=== PATIENT | male | born 1985 | race Caucasian/White ===

== ENCOUNTER 2019-05-13 16:31 | Emergency (ER) | payer OTHER ==
[~2019-05-13] VITALS: Ht 177.8 cm; Wt 86.3 kg
[2019-05-13] MEDS ORDERED: fentaNYL INJECTION 100 MCG/2 ML AMP IVP ONE (17:00)
--- NOTE | 2019-05-13 17:01 | ED Abdominal Pain ---
General Chief Complaint: Chest Pain Nursing Triage Note: Patient c/o epigastric pain for the past couple of days. He was evaluated in the clinic given a GI cocktail and sent to the ED for further evaluation. The patient states that he thought it was his ulcers giving him trouble but it hasn't got any better. Sepsis Screen: No Definite Risk (FELIX LANGLEY MD) History of Present Illness Date Seen by Provider: May 13, 2019 Time Seen by Provider: 16:58 Initial Comments 34-year-old male Complains of a persistent upper abdominal pain it's been pretty bad for the last 4 days or so claims to have not really eaten anything during that time Says he carried a diagnosis of ulcer in the past based on symptoms and that Carafate seemed to be helpful but he never had upper endoscopy The only chest discomfort he describes is a little tightness feeling if he moves wrong or stretches it doesn't sound like he has significant chest pain he does have some radiation of pain to the back, he has not had nausea or vomiting he denies any bloody or black tarry stools denies using alcohol at all feels like eating usually makes his pain worse relates that he has definite positive family history of gallbladder disease Apparently he was seen in the clinic and got a GI cocktail before coming to the ER GI cocktail was not helpful (FELIX LANGLEY MD) Allergies and Home Medications Allergies Coded Allergies: No Known Drug Allergies (Unverified , 05/13/19) Home Medications Hydrocodone Bit/Acetaminophen 1 Tab Tab, 1 EACH PO Q6H PRN for PAIN-SEVERE Prescribed by: DINA JACOBS on 05/13/191939 Naproxen 500 Mg Tablet, 500 MG PO BID PRN for ABDOMINAL PAIN Prescribed by: DINA JACOBS on 05/13/191939 Pantoprazole Sodium 40 Mg Tablet.dr, 40 MG PO DAILY Prescribed by: DINA JACOBS on 05/13/191939 Patient Home Medication List Home Medication List Reviewed: Yes (DINA JACOBS MD) Review of Systems Review of Systems Constitutional: no symptoms reported EENTM: No Symptoms Reported Respiratory: No Symptoms Reported Cardiovascular: No Symptoms Reported Gastrointestinal: Abdominal Pain; Denies Nausea, Denies Vomiting Genitourinary: No Symptoms Reported Musculoskeletal: no symptoms reported Skin: no symptoms reported Psychiatric/Neurological: No Symptoms Reported Endocrine: No Symptoms Reported Hematologic/Lymphatic: No Symptoms Reported (FELIX LANGLEY MD) Past Lrieuoo-Dbminf-Uudxlj Hx Patient Social History Recent Foreign Travel: No Contact w/Someone Who Travel: No Recent Infectious Disease Expo: No (FELIX LANGLEY MD) Physical Exam Vital Signs Vital Signs - First Documented 05/13/19 16:41 Temp 37.7 Pulse 85 Resp 16 B/P (MAP) 132/94 (107) Pulse Ox 97 O2 Delivery Room Air (DINA JACOBS MD) Vital Signs Capillary Refill : Less Than 3 Seconds (FELIX LANGLEY MD) Height/Weight/BMI Height: '" Weight: lbs. oz. kg; 27.00 BMI Method: General Appearance: WD/WN, mild distress HEENT: PERRL/EOMI Neck: supple Respiratory: lungs clear, normal breath sounds Cardiovascular: regular rate, rhythm Gastrointestinal: abnormal bowel sounds (decreased); No guarding, No rebound; tenderness (all across epigastrium and RUQ) Extremities: normal range of motion, no pedal edema Back: normal inspection, no CVA tenderness Neurologic/Psychiatric: floor renovator II-XII nml as tested, no motor/sensory deficits (FELIX LANGLEY MD) Focused Exam Lactate Level 05/13/19 17:18: Lactic Acid Level 1.30 (DINA JACOBS MD) Lactic Acid Level Laboratory Tests Test 05/13/19 17:18 Lactic Acid Level 1.30 MMOL/L (0.50-2.00) (DINA JACOBS MD) Progress/Results/Core Measures Results/Orders Lab Results Laboratory Tests Test 05/13/19 16:45 05/13/19 17:18 Range/Units White Blood Count 12.0 H 4.3-11.0 10^3/uL Red Blood Count 5.80 4.35-5.85 10^6/uL Hemoglobin 17.5 13.3-17.7 G/DL Hematocrit 51 40-54 % Mean Corpuscular Volume 89 80-99 FL Mean Corpuscular Hemoglobin 30 25-34 PG Mean Corpuscular Hemoglobin Concent 34 32-36 G/DL Red Cell Distribution Width 12.4 10.0-14.5 % Platelet Count 183 130-400 10^3/uL Mean Platelet Volume 11.1 H 7.4-10.4 FL Neutrophils (%) (Auto) 76 H 42-75 % Lymphocytes (%) (Auto) 15 12-44 % Monocytes (%) (Auto) 8 0-12 % Eosinophils (%) (Auto) 0 0-10 % Basophils (%) (Auto) 0 0-10 % Neutrophils # (Auto) 9.2 H 1.8-7.8 X 10^3 Lymphocytes # (Auto) 1.8 1.0-4.0 X 10^3 Monocytes # (Auto) 0.9 0.0-1.0 X 10^3 Eosinophils # (Auto) 0.0 0.0-0.3 10^3/uL Basophils # (Auto) 0.0 0.0-0.1 10^3/uL Sodium Level 139 135-145 MMOL/L Potassium Level 4.0 3.6-5.0 MMOL/L Chloride Level 98 98-107 MMOL/L Carbon Dioxide Level 28 21-32 MMOL/L Anion Gap 13 5-14 MMOL/L Blood Urea Nitrogen 17 7-18 MG/DL Creatinine 1.03 0.60-1.30 MG/DL Estimat Glomerular Filtration Rate > 60 BUN/Creatinine Ratio 17 Glucose Level 100 70-105 MG/DL Calcium Level 9.6 8.5-10.1 MG/DL Corrected Calcium 8.5-10.1 MG/DL Total Bilirubin 0.6 0.1-1.0 MG/DL Aspartate Amino Transf (AST/SGOT) 13 5-34 U/L Alanine Aminotransferase (ALT/SGPT) 18 0-55 U/L Alkaline Phosphatase 89 40-136 U/L Troponin I < 0.30 <0.30 NG/ML Total Protein 8.1 6.4-8.2 GM/DL Albumin 4.6 H 3.2-4.5 GM/DL Lipase 27 8-78 U/L Lactic Acid Level 1.30 0.50-2.00 MMOL/L (DINA JACOBS MD) My Orders Orders - DINA JACOBS MD Ketorolac Injection (Toradol Injection) (05/13/19 19:15) Pantoprazole Injection (Protonix Injecti (05/13/19 19:15) Rx-Hydrocodone/Apap 5-325 Mg (Rx-Vicodin (05/13/19 19:45) (DINA JACOBS MD) Medications Given in ED Current Medications Medications Dose Ordered Sig/Shelli Route Start Time Stop Time Status Last Admin Dose Admin Acetaminophen/ Hydrocodone Bitart 1 ea Q6H PRN PO 05/13/19 19:45 05/13/19 19:56 DC 05/13/19 19:49 1 EA Famotidine 20 mg ONCE ONCE IVP 05/13/19 17:15 05/13/19 17:16 DC 05/13/19 17:23 20 MG Fentanyl Citrate 50 mcg ONCE ONCE IVP 05/13/19 17:00 05/13/19 17:01 DC 05/13/19 17:12 50 MCG Iohexol 100 ml ONCE ONCE IV 05/13/19 17:45 05/13/19 17:46 DC 05/13/19 18:02 100 ML Ketorolac Tromethamine 30 mg ONCE ONCE IVP 05/13/19 19:15 05/13/19 19:16 DC 05/13/19 19:08 30 MG Sodium Chloride 10 ml NEEDED PRN IV 05/13/19 17:45 05/13/19 19:56 DC 05/13/19 18:02 10 ML Sodium Chloride 100 ml ONCE ONCE IV 05/13/19 17:45 05/13/19 17:46 DC 05/13/19 18:02 100 ML (DINA JACOBS MD) Vital Signs/I&O 05/13/19 05/13/19 16:41 19:49 Temp 37.7 37.7 Pulse 85 95 Resp 16 16 B/P (MAP) 132/94 (107) 159/73 Pulse Ox 97 96 O2 Delivery Room Air Room Air 05/14/19 00:00 Intake Total 1000 ml Balance 1000 ml (DINA JACOBS MD) Blood Pressure Mean: 107 Progress Progress Note : Progress Note Hemoglobin 17.5 and white count 12,000 CMP lipase and troponin are negative lactate is pending CT abdomen and pelvis with IV contrast pending (FELIX LANGLEY MD) Progress Note #1: Progress Note I assumed care of the patient from dr. Langley at 1800 at shift change. Awaiting C T scan results to determine disposition of patient as his labs did not show anything specific to account for his epigastric pain. He had mild elevation of WBC to 12K but this could be stress related. Normal Lactic acid at 1.3 and normal Chemistry with LFTs and Lipase. Progress Note #2: Progress Note Reviewed results of the CT scan and labs with the patient and family. He was still having pain so a dose of Toradol was given as well as some Protonix IV. Advised that if he was having improved symptoms and we could try and get him discharged home otherwise if he had continued or worsening pain he may need to follow up with the surgeon for a possible scope versus a nuclear medicine scan to look at his gallbladder. Progress Note #3: Progress Note Patient was reporting improved pain control after the Toradol even before he got the Protonix. Will discharge to home with refill of Protonix as well as having when necessary naproxen and hydrocodone available for severe pain. Counseled to check back with the clinic and Dr. Haskins the button puncher surgeon about having the other testing done. (DINA JACOBS MD) Comment EKG shows a normal sinus rhythm at 77 flipped T-wave in limb lead 3 and slightly aVF no acute ST changes normal intervals (FELIX LANGLEY MD) Diagnostic Imaging Comments Chest x-ray has been read as normal (FELIX LANGLEY MD) Diagonstic Imaging: CT Plain Films/CT/US/NM/MRI: abdomen, pelvis Comments NAME: ROYER KOVACSJR Mona [facility] REC#: [id number] PT STATUS: REG ER : 1985 PHYSICIAN: FELIX LANGLEY MD ADMIT DATE: 05/13/19/ER FS Signed Date of Exam:05/13/19 CT ABDOMEN/PELVIS W EXAMINATION: CT Abdomen and Pelvis with intravenous contrast. TECHNIQUE: Multiple contiguous axial images were obtained through the abdomen and pelvis after the uneventful administration of intravenous contrast. All CT scans use one or more of the following dose optimizing techniques: automated exposure control, MA and/or KvP adjustment based on a patient size and exam type, or iterative reconstruction. HISTORY: Epigastric pain FINDINGS: No comparison available. Limited views of the lower thorax are unremarkable. The liver is normal without focal lesion. No biliary ductal dilation. Gallbladder is normal. There is mild nonspecific stranding of the pancreas, possibly representing pancreatitis. No fluid collection is seen. Spleen and adrenal glands are normal. The kidneys are normal. No hydronephrosis. Urinary bladder is normal. There are no dilated loops of large or small bowel. No obstruction or inflammation. No free fluid or air. No abdominal or pelvic lymphadenopathy. Aorta is normal in caliber without aneurysm. There are no suspicious osseus lesions. IMPRESSION: 1. Mild nonspecific stranding about the pancreas which may represent acute pancreatitis, correlate with laboratory markers. Dictated by: Dictated on workstation # [id number] Dict: 05/13/191820 Trans: 05/13/191822 [facility] [phone] Interpreted by: CANDY WILLS MD Electronically signed by: CANDY WILLS MD 05/13/191822 (DINA JACOBS MD) Transfer of Care Time: 18:00 Care transferred to: Dr. Jacobs (FELIX LANGLEY MD) Departure Impression Primary Impression: Epigastric abdominal pain Additional Impression: RUQ abdominal pain Disposition: HOME, SELF-CARE Condition: Stable Departure-Patient Inst. Decision time for Depature: 19:36 (DINA JACOBS MD) Referrals: SUZANNE DÍAZ APRN (PCP) Primary Care Physician MARLENE HASKINS DO Patient Instructions: Ulcer and Gastritis Diet, Gastritis (DC), Peptic Ulcers (DC), Acute Abdomen (Belly Pain), Adult (DC) Add. Discharge Instructions: Follow a low fat bland diet. Check with clinic about possible EGD (scope) to look at your stomach and esophagus for ulcers and severe gastritis. You may also need a nuclear medicine scan to check your gallbladder function to see if that might be causing your pain to be worse, especially after eating. Take the medicine for acid on schedule and use the pain medicine as needed for severe pain. All discharge instructions reviewed with patient and/or family. Voiced understanding. Scripts Pantoprazole Sodium (Pantoprazole Sodium) 40 Mg Tablet. 40 MG PO DAILY for gastritis for 30 Days, #30 TAB 0 Refills Prov: DINA JACOBS MD 05/13/19 Naproxen (Naprosyn) 500 Mg Tablet 500 MG PO BID PRN for ABDOMINAL PAIN for 15 Days, #30 TAB 0 Refills Prov: DINA JACOBS MD 05/13/19 Hydrocodone Bit/Acetaminophen (Hydrocodone/Acetaminophen 5/325mg Tablet) 1 Tab Tab 1 EACH PO Q6H PRN for PAIN-SEVERE MDD 10 for 4 Days, #16 TAB 0 Refills Prov: DINA JACOBS MD 05/13/19 FELIX LANGLEY MD May 13, 2019 17:01 DINA JACOBS MD May 13, 2019 18:32
[2019-05-13 17:04] LABS: BASOPHILS % (AUTO) 0 % (0-10); EOSINOPHILS % (AUTO) 0 % (0-10); HEMATOCRIT 51 % (40-54); HEMOGLOBIN 17.5 G/DL (13.3-17.7); LYMPHOCYTES # (AUTO) 1.8 X 10^3 (1.0-4.0); LYMPHOCYTES % (AUTO) 15 % (12-44); MEAN CORPUSCULAR HEMOGLOBIN 30 PG (25-34); MEAN CORPUSCULAR HGB CONC 34 G/DL (32-36); MEAN CORPUSCULAR VOLUME 89 FL (80-99); MEAN PLATELET VOLUME 11.1 FL (7.4-10.4); MONOCYTES # (AUTO) 0.9 X 10^3 (0.0-1.0); MONOCYTES % (AUTO) 8 % (0-12); NEUTROPHILS # (AUTO) 9.2 X 10^3 (1.8-7.8); NEUTROPHILS % (AUTO) 76 % (42-75); PLATELET COUNT 183 10^3/uL (130-400); RED CELL DISTRIBUTION WIDTH 12.4 % (10.0-14.5)
--- NOTE | 2019-05-13 17:06 | Diagnostic Imaging Report ---
EXAMINATION: Chest 1 view HISTORY: Epigastric pain FINDINGS: No comparison available. The lungs are clear. No edema. No pneumonia. No pleural effusion. No pneumothorax. Heart is normal in size. IMPRESSION: 1. Clear lungs. Dictated by: Dictated on workstation # [id number]
[2019-05-13] MEDS ORDERED: NS IV 1000 ML 1,000 ML IV SCH (17:15)
[2019-05-13] MEDS ORDERED: FAMOTIDINE 20MG/2ML IV (PEPCID) IVP ONE (17:15)
[2019-05-13 17:21] LABS: SODIUM 139 MMOL/L (135-145)
--- NOTE | 2019-05-13 17:21 | NUR ---
PT'S SISTER TEXTING ET WOULD LIKE A UPDATE. UPDATE GIVEN AFTER GETTING VERBAL PERMISSION FROM THE PT.
[2019-05-13 17:22] LABS: ALANINE AMINOTRANSFERASE 18 U/L (0-55); ALBUMIN 4.6 GM/DL (3.2-4.5); ALKALINE PHOSPHATASE 89 U/L (40-136); BILIRUBIN,TOTAL 0.6 MG/DL (0.1-1.0); BUN/CREATININE RATIO 17; CALCIUM 9.6 MG/DL (8.5-10.1); CARBON DIOXIDE 28 MMOL/L (21-32); CHLORIDE 98 MMOL/L (98-107); CREATININE SERUM 1.03 MG/DL (0.60-1.30); GFR ESTIMATED > 60; GLUCOSE 100 MG/DL (70-105); LIPASE 27 U/L (8-78); TOTAL PROTEIN 8.1 GM/DL (6.4-8.2)
[2019-05-13] MEDS ORDERED: HOLD METFORMIN - RECEIVED CONTRAST 20 ML VIAL IV SCH (17:45)
[2019-05-13] MEDS ORDERED: IOHEXOL 350 MG/ML 100 ML (OMNIPAQUE 350) VIAL IV ONE (17:45)
[2019-05-13] MEDS ORDERED: NS 100 ML (IVPB) BAG IV ONE (17:45)
[2019-05-13] MEDS ORDERED: CATHETER FLUSH 10 ML SYR IV PRN (17:45)
--- NOTE | 2019-05-13 18:24 | Diagnostic Imaging Report ---
EXAMINATION: CT Abdomen and Pelvis with intravenous contrast. TECHNIQUE: Multiple contiguous axial images were obtained through the abdomen and pelvis after the uneventful administration of intravenous contrast. All CT scans use one or more of the following dose optimizing techniques: automated exposure control, MA and/or KvP adjustment based on a patient size and exam type, or iterative reconstruction. HISTORY: Epigastric pain FINDINGS: No comparison available. Limited views of the lower thorax are unremarkable. The liver is normal without focal lesion. No biliary ductal dilation. Gallbladder is normal. There is mild nonspecific stranding of the pancreas, possibly representing pancreatitis. No fluid collection is seen. Spleen and adrenal glands are normal. The kidneys are normal. No hydronephrosis. Urinary bladder is normal. There are no dilated loops of large or small bowel. No obstruction or inflammation. No free fluid or air. No abdominal or pelvic lymphadenopathy. Aorta is normal in caliber without aneurysm. There are no suspicious osseus lesions. IMPRESSION: 1. Mild nonspecific stranding about the pancreas which may represent acute pancreatitis, correlate with laboratory markers. Dictated by: Dictated on workstation # [id number]
[2019-05-13] MEDS ORDERED: KETOROLAC 30 MG/ML VIAL IVP ONE (19:15)
[2019-05-13] MEDS ORDERED: PANTOPRAZOLE 40 MG (PROTONIX) VIAL IV STA (19:15)
[2019-05-13] MEDS ORDERED: PANT40TA3 PO (19:40)
[2019-05-13] MEDS ORDERED: NAPR-1071 PO (19:40)
[2019-05-13] MEDS ORDERED: ACHD5005 PO (19:40)
[2019-05-13] MEDS ORDERED: RX-HYDROCODONE/APAP 5/325 MG #4 TAB PK PO PRN (19:45)
[2019-05-13 19:49] VITALS: BP 159/73
== END 2019-05-13 19:55 | disposition home or self-care (01) ==
LOC: EDUNIT# 16:31 → ER FS 16:34
DX: R10.13 Epigastric pain (principal); R10.11 Right upper quadrant pain
CPT/HCPCS: 36415; 71045; 74177; 80053; 83605; 83690; 84484; 85025; 93005

== ENCOUNTER → 2019-05-18 | Outpatient (CLI) | payer OTHER ==
[~2019-05-18] MED LIST: ACHD5005 PO; NAPR-1071 PO; PANT40TA3 PO
== END ==
LOC: LAB 15:33
PROVIDERS: ATTEND Surgery
DX: L98.499 Non-pressure chronic ulcer of skin of other sites with unspecified severity (principal)

== ENCOUNTER 2019-06-01 06:00 | Outpatient (CLI) | payer OTHER ==
[~2019-06-01] VITALS: Ht 177.8 cm; Wt 86.4 kg
[2019-06-01] MEDS ORDERED: SUCR1TAB PO (15:21)
[2019-06-01] MEDS ORDERED: NAPR500T8 PO (15:21)
[2019-06-01] MEDS ORDERED: PANT40TA3 PO (15:21)
== END 2019-06-01 15:22 | disposition home or self-care (01) ==
LOC: PREOP 06:00
PROVIDERS: ATTEND Surgery
DX: Z01.818 Encounter for other preprocedural examination (principal)

== ENCOUNTER 2022-02-27 13:21 | Observation (INO) | payer OTHER ==
[~2022-02-27] VITALS: Ht 175.3 cm; Wt 90.2 kg
[~2022-02-27 13:21] MED LIST changes: +NAPR500T8 PO; -PANT40TA3 PO; +PANT40TA52 PO; +SUCR1TAB PO
[2022-02-27] MEDS ORDERED: morphine INJ 10 MG/ML 1ML (SYR OR VIAL) IVP STA (13:43)
[2022-02-27] MEDS ORDERED: ACETAMINOPHEN 500 MG TAB (TYLENOL) PO ONE (13:45)
[2022-02-27] MEDS ORDERED: ONDANSETRON 4 MG/2 ML (SDV) Z0FRAN IVP ONE (13:45)
[2022-02-27] MEDS ORDERED: ANTACID SUSP 30 ML UDC (MYLANTA) PO ONE (13:45)
[2022-02-27] MEDS ORDERED: VANCOMYCIN INJECTION 1,000 MG in NS (IVPB) 250 ML IV SCH (13:45)
[2022-02-27] MEDS ORDERED: NS IV 1000 ML 1,000 ML IV SCH (13:45)
[2022-02-27] MEDS ORDERED: cefTRIAXone 2,000 MG in NS (IVPB) 50 ML IV ONE (13:45)
[2022-02-27] MEDS ORDERED: PANTOPRAZOLE 40 MG (PROTONIX) VIAL IV ONE (13:45)
--- NOTE | 2022-02-27 14:09 | ED Headache ---
General Chief Complaint: Head/Cervical Problems Stated Complaint: NECK PAIN Nursing Triage Note: PT AMBULATET TO ROOM FS05 WITH C/O NECK PAIN AND PHOTOPHOBIA. PT STATES REPORT, "STIFFNESS, CANT RAISE ARMS UP HIGH, CAN'T RAISE LEGS, HEADACHE". PT STATES HE THINKS HE HAS VIRAL MENINGITIS. Source: patient, family Exam Limitations: no limitations History of Present Illness Date Seen by Provider: Feb 27, 2022 Time Seen by Provider: 13:23 Initial Comments 36-year-old male with past medical history of GERD/gastritis coming in due to roughly 5 days of neck stiffness and headache with light sensitivity. Feels like if he raises his leg the pain gets a lot worse. Feels like he cannot really bend down or twist his neck much at all without significant pain. He denies any muscular tenderness or pulling anything. He did have COVID on February 15 with symptoms occurring a couple days before that. He did have a high fever with that, but has not had any fever for over a week. Has been relatively normal until Friday when the neck stiffness came on. Has never had the symptoms before. Is otherwise denying any other acute complaints including no chest pain, shortness of breath, abdominal pain, vomiting, diarrhea, weakness, numbness, or any other concerns. Allergies and Home Medications Allergies Coded Allergies: No Known Drug Allergies (Unverified , 05/13/19) Patient Home Medication List Home Medication List Reviewed: Yes Naproxen (Naproxen) 500 Mg Tablet.dr, 500 MG PO BID, (Reported) Entered as Reported by: VIRGINIA CRYSTAL on 06/01/191520 Pantoprazole Sodium (Pantoprazole Sodium) 40 Mg Tablet.dr, 40 MG PO DAILY, (Reported) Entered as Reported by: VIRGINIA CRYSTAL on 06/01/191520 Sucralfate (Sucralfate) 1 Gm Tablet, 1 GM PO ACHS, (Reported) Entered as Reported by: VIRGINIA CRYSTAL on 06/01/19 152 Review of Systems Review of Systems Constitutional: No fever Eyes: Denies Blurred Vision Ears, Nose, Mouth, Throat: no symptoms reported Respiratory: no symptoms reported Cardiovascular: no symptoms reported Gastrointestinal: no symptoms reported Genitourinary: no symptoms reported Musculoskeletal: no symptoms reported Skin: no symptoms reported Psychiatric/Neurological: See HPI All Other Systems Reviewed Negative Unless Noted: Yes Past Cjqqkxt-Ddhjra-Fapumd Hx Patient Social History Tobacco Use?: No Smoking Status: Never a Smoker Smokeless Tobacco Frequency: Never a User Use of E-Cig and/or Vaping dev: No Use of E-Cig and/or Vaping Brian: Never a User Substance use?: No Alcohol Use?: No Pt feels they are or have been: No Immunizations Up To Date 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: [employer] Seasonal Allergies Seasonal Allergies: Yes Past Medical History Surgeries: Yes (R wrist fx x2, left eye) Orthopedic Respiratory: No Pneumonia Cardiac: No Neurological: No Genitourinary: No Gastrointestinal: Yes Gastroesophageal Reflux, Ulcer Musculoskeletal: No Endocrine: No HEENT: No Cancer: No Psychosocial: No Integumentary: No Blood Disorders: No Physical Exam Vital Signs Vital Signs - First Documented 02/27/22 13:25 Temp 37.4 Pulse 96 Resp 20 B/P (MAP) 135/76 (95) O2 Delivery Room Air Capillary Refill : Less Than 3 Seconds Height, Weight, BMI Height: '" Weight: lbs. oz. kg; 29.00 BMI Method: General Appearance: WD/WN, no apparent distress HEENT: PERRL/EOMI, normal ENT inspection, pharynx normal Neck: non-tender, normal inspection, other (Meningismus with pain with forward flexion of the neck) Cardiovascular: regular rate, rhythm, no edema, no murmur Respiratory: chest non-tender, lungs clear, normal breath sounds, no respiratory distress, no accessory muscle use Gastrointestinal: normal bowel sounds, non tender, soft; No distended, No guarding, No rebound Back: normal inspection, no CVA tenderness, no vertebral tenderness Extremities: normal range of motion, non-tender, normal inspection, no pedal edema, no calf tenderness, normal capillary refill Psychiatric: alert, oriented x 3 Crainal Nerves: normal hearing, normal speech, PERRL, other (Positive Kernig sign, positive Brudzinski, does have meningismus, positive jolt test) Coordination/Gait: normal finger to nose, normal gait Motor/Sensory: no motor deficit, no sensory deficit Skin: normal color, warm/dry Lymphatic: no adenopathy Procedures/Interventions Discussed Risk,Benefits: Yes Patient Consents: Yes Position: Lying, L3-4, Left Sterile Technique: Yes Fluid Color: blood tinged initially and then clear on subsequent tubes Size of Disposal Tray Used: Adult Patient tolerated the procedure well. Progress/Results/Core Measures Results/Orders Lab Results Laboratory Tests Test 02/27/22 14:19 02/27/22 14:51 Range/Units White Blood Count 8.3 4.3-11.0 10^3/uL Red Blood Count 5.04 4.30-5.52 10^6/uL Hemoglobin 15.4 13.3-17.7 g/dL Hematocrit 44 40-54 % Mean Corpuscular Volume 87 80-99 fL Mean Corpuscular Hemoglobin 31 25-34 pg Mean Corpuscular Hemoglobin Concent 35 32-36 g/dL Red Cell Distribution Width 12.3 10.0-14.5 % Platelet Count 168 130-400 10^3/uL Mean Platelet Volume 11.0 9.0-12.2 fL Immature Granulocyte % (Auto) 0 % Neutrophils (%) (Auto) 77 H 42-75 % Lymphocytes (%) (Auto) 17 12-44 % Monocytes (%) (Auto) 6 0-12 % Eosinophils (%) (Auto) 0 0-10 % Basophils (%) (Auto) 0 0-10 % Neutrophils # (Auto) 6.3 1.8-7.8 10^3/uL Lymphocytes # (Auto) 1.4 1.0-4.0 10^3/uL Monocytes # (Auto) 0.5 0.0-1.0 10^3/uL Eosinophils # (Auto) 0.0 0.0-0.3 10^3/uL Basophils # (Auto) 0.0 0.0-0.1 10^3/uL Immature Granulocyte # (Auto) 0.0 0.0-0.1 10^3/uL Prothrombin Time 13.3 12.2-14.7 SEC INR Comment 1.0 0.8-1.4 Activated Partial Thromboplast Time 28 24-35 SEC Sodium Level 140 135-145 MMOL/L Potassium Level 4.1 3.6-5.0 MMOL/L Chloride Level 104 98-107 MMOL/L Carbon Dioxide Level 26 21-32 MMOL/L Anion Gap 10 5-14 MMOL/L Blood Urea Nitrogen 15 7-18 MG/DL Creatinine 0.93 0.60-1.30 MG/DL Estimat Glomerular Filtration Rate 109 BUN/Creatinine Ratio 16 Glucose Level 104 70-105 MG/DL Lactic Acid Level 0.96 0.50-2.00 MMOL/L Calcium Level 9.7 8.5-10.1 MG/DL Corrected Calcium 8.5-10.1 MG/DL Total Bilirubin 0.7 0.1-1.0 MG/DL Aspartate Amino Transf (AST/SGOT) 16 5-34 U/L Alanine Aminotransferase (ALT/SGPT) 26 0-55 U/L Alkaline Phosphatase 93 40-136 U/L Total Protein 7.7 6.4-8.2 GM/DL Albumin 4.8 H 3.2-4.5 GM/DL My Orders Orders - DERREK RILEY MD Cbc With Automated Diff (02/27/22 13:43) Comprehensive Metabolic Panel (02/27/22 13:43) Blood Culture (02/27/22 13:43) Sputum Culture (02/27/22 13:43) Protime With Inr (02/27/22 13:43) Partial Thromboplastin Time (02/27/22 13:43) Chest 1 View Ap/Pa Only (02/27/22 13:43) Ed Iv/Invasive Line Start (02/27/22 13:43) Ed Iv/Invasive Line Start (02/27/22 13:43) Vital Signs Adult Sepsis Patie Q15M (02/27/22 13:43) O2 (02/27/22 13:43) Remove Rings In Anticipation O (02/27/22 13:43) Lactic Acid Analyzer (02/27/22 13:43) Ns Iv 1000 Ml (Sodium Chloride 0.9%) (02/27/22 13:45) Vancomycin Injection (Vancomycin Injecti (02/27/22 13:45) Ceftriaxone (Rocephin) (02/27/22 13:45) Dexamethasone Injection (Decadron Inje (02/27/22 13:45) Ct Head Wo (02/27/22 13:43) Acetaminophen Tablet (Tylenol Tablet) (02/27/22 13:45) Antacid Suspension (Mylanta Suspension (02/27/22 13:45) Pantoprazole Injection (Protonix Injecti (02/27/22 13:45) Ondansetron Injection (Zofran Injectio (02/27/22 13:45) Morphine Injection (Morphine Injection (02/27/22 13:43) Csf Cell Count (02/27/22 15:03) Csf Total Protein (02/27/22 15:03) Csf Glucose (02/27/22 15:03) Csf Culture (02/27/22 15:03) Ed Admission (Communication) (02/27/22 15:24) West Nile Virus G&M Elsy Csf (02/27/22 15:29) Medications Given in ED Current Medications Medications Dose Ordered Sig/Shelli Route Start Time Stop Time Status Last Admin Dose Admin Acetaminophen 1,000 mg ONCE ONCE PO 02/27/22 13:45 02/27/22 13:50 DC 02/27/22 14:08 1,000 MG Al Hydrox/Mg Hydrox/Simethicone 30 ml ONCE ONCE PO 02/27/22 13:45 02/27/22 13:50 DC 02/27/22 14:08 30 ML Ceftriaxone Sodium 2000 mg/ Sodium Chloride 50 ml @ 100 mls/hr ONCE ONCE IV 02/27/22 13:45 02/27/22 14:14 DC 02/27/22 14:09 100 MLS/HR Dexamethasone Sodium Phosphate 10 mg ONCE ONCE IV 02/27/22 13:45 02/27/22 13:50 DC 02/27/22 14:09 10 MG Ondansetron HCl 4 mg ONCE ONCE IVP 02/27/22 13:45 02/27/22 13:50 DC 02/27/22 14:09 4 MG Pantoprazole 40 mg ONCE ONCE IV 02/27/22 13:45 02/27/22 13:50 DC 02/27/22 14:09 40 MG Vital Signs/I&O 02/27/22 13:25 Temp 37.4 Pulse 96 Resp 20 B/P (MAP) 135/76 (95) O2 Delivery Room Air Blood Pressure Mean: 95 Progress Progress Note : Progress Note 36-year-old male with above history coming in due to headache and neck sti ffness. ABCs were intact and vitals were stable on presentation. Specifically, he is afebrile. He does have multiple signs that would be concerning for meningitis. Because of that, an IV was placed, he was consented, CT head obtained, and lumbar puncture obtained. It came out initially slightly bloody like a traumatic tap, and later cleared which was reassuring. He did empiri candida get ceftriaxone and vancomycin after steroids. I contacted Dr. Tran who admit the patient under observation status until his cultures come back. We also sent a West Nile CSF to see if this is potentially related to that. Patient did receive morphine headache on arrival which did help. Diagnostic Imaging Diagonstic Imaging: Xray (chest), CT (head) [facility] [place] [place] NAME: ROYER KOVACS [facility] REC#: [id number] PT STATUS: REG ER : 1985 PHYSICIAN: DERREK RILEY MD ADMIT DATE: 02/27/22/ER FS Signed Date of Exam:02/27/22 CT HEAD WO PROCEDURE: CT head without contrast. TECHNIQUE: Multiple contiguous axial images were obtained through the brain without the use of intravenous contrast. Auto Exposure Controls were utilized during the CT exam to meet ALARA standards for radiation dose reduction. INDICATION: Headache and neck stiffness. COMPARISON: None available. FINDINGS: No hyperdense hemorrhage or space-occupying mass. No hydrocephalus or midline shift. The basilar cisterns are normal. Serna-white matter differentiation is well preserved. The mastoid air cells are clear. Paranasal sinuses are normal. No focal osseous abnormality of the calvarium. IMPRESSION: 1. No acute intracranial process. Dictated by: Dictated on workstation # [id number] Dict: 02/27/22 1515 Trans: 02/27/22 1516 [facility] [id number] Interpreted by: VINEET INMAN MD Electronically signed by: VINEET INMAN MD 02/27/[address] [facility] [place] NAME: ROYER KOVACS [facility] REC#: [id number] PT STATUS: REG ER : 1985 PHYSICIAN: DERREK RILEY MD ADMIT DATE: 02/27/22/ER FS Draft Date of Exam:02/27/22 CHEST 1 VIEW AP/PA ONLY PATIENT HISTORY: recent COVID. TECHNIQUE: Single frontal view of the chest. COMPARISON: 05/13/2019 FINDINGS: The lung volumes are normal. No focal consolidation is seen. No large pleural effusion or pneumothorax is seen. The cardiomediastinal silhouette is normal in size and contour. No acute osseous abnormality is seen. IMPRESSION: No acute pulmonary abnormality seen. Dictated on workstation # [id number] Dict: 02/27/22 1527 Trans: 02/27/22 1527 CVB [id number] Interpreted by: JORGE MARIANO MD Electronically signed by: Departure Impression Primary Impression: Meningitis Disposition: 30 STILL A PATIENT Condition: Stable Admissions Decision to Admit Reason: Admit from ER (General) Decision to Admit/Date: Feb 27, 2022 Time/Decision to Admit Time: 15:20 Transfer Method of Transfer: Private Vehicle Departure-Patient Inst. Referrals: BERNARDO LEVINE APRN (PCP) Primary Care Physician MARCIA BECKWITH MD (Family) Primary Care Physician DERREK RILEY MD Feb 27, 2022 14:09
[2022-02-27 14:31] LABS: BASOPHILS % (AUTO) 0 % (0-10); EOSINOPHILS % (AUTO) 0 % (0-10); HEMATOCRIT 44 % (40-54); HEMOGLOBIN 15.4 g/dL (13.3-17.7); LYMPHOCYTES # (AUTO) 1.4 10^3/uL (1.0-4.0); LYMPHOCYTES % (AUTO) 17 % (12-44); MEAN CORPUSCULAR HEMOGLOBIN 31 pg (25-34); MEAN CORPUSCULAR HGB CONC 35 g/dL (32-36); MEAN CORPUSCULAR VOLUME 87 fL (80-99); MONOCYTES # (AUTO) 0.5 10^3/uL (0.0-1.0); MONOCYTES % (AUTO) 6 % (0-12); NEUTROPHILS # (AUTO) 6.3 10^3/uL (1.8-7.8); NEUTROPHILS % (AUTO) 77 % (42-75); PLATELET COUNT 168 10^3/uL (130-400); WHITE BLOOD COUNT 8.3 10^3/uL (4.3-11.0)
[2022-02-27 14:46] LABS: PROTHROMBIN TIME PATIENT 13.3 SEC (12.2-14.7)
[2022-02-27 14:54] LABS: BUN/CREATININE RATIO 16; CARBON DIOXIDE 26 MMOL/L (21-32); CHLORIDE 104 MMOL/L (98-107); CREATININE SERUM 0.93 MG/DL (0.60-1.30); GFR ESTIMATED 109; POTASSIUM 4.1 MMOL/L (3.6-5.0); SODIUM 140 MMOL/L (135-145)
[2022-02-27 14:55] LABS: ALANINE AMINOTRANSFERASE 26 U/L (0-55); ALBUMIN 4.8 GM/DL (3.2-4.5); ALKALINE PHOSPHATASE 93 U/L (40-136); BILIRUBIN,TOTAL 0.7 MG/DL (0.1-1.0); CALCIUM 9.7 MG/DL (8.5-10.1); GLUCOSE 104 MG/DL (70-105); TOTAL PROTEIN 7.7 GM/DL (6.4-8.2)
--- NOTE | 2022-02-27 15:17 | Diagnostic Imaging Report ---
PROCEDURE: CT head without contrast. TECHNIQUE: Multiple contiguous axial images were obtained through the brain without the use of intravenous contrast. Auto Exposure Controls were utilized during the CT exam to meet ALARA standards for radiation dose reduction. INDICATION: Headache and neck stiffness. COMPARISON: None available. FINDINGS: No hyperdense hemorrhage or space-occupying mass. No hydrocephalus or midline shift. The basilar cisterns are normal. Serna-white matter differentiation is well preserved. The mastoid air cells are clear. Paranasal sinuses are normal. No focal osseous abnormality of the calvarium. IMPRESSION: 1. No acute intracranial process. Dictated by: Dictated on workstation # [id number]
--- NOTE | 2022-02-27 15:27 | Diagnostic Imaging Report ---
PATIENT HISTORY: recent COVID. TECHNIQUE: Single frontal view of the chest. COMPARISON: 05/13/2019 FINDINGS: The lung volumes are normal. No focal consolidation is seen. No large pleural effusion or pneumothorax is seen. The cardiomediastinal silhouette is normal in size and contour. No acute osseous abnormality is seen. IMPRESSION: No acute pulmonary abnormality seen. Dictated by: Dictated on workstation # [id number]
[2022-02-27 16:10] LABS: RED BLOOD CELL,CSF 0.001 10^6/uL (0-0); WHITE BLOOD CELL,CSF 0.003 10^3/uL (0-0.005)
[2022-02-27 16:16] LABS: CSF GLUCOSE 61 MG/DL (50-80)
[2022-02-27 16:23] LABS: CSF TOTAL PROTEIN 45 MG/DL (15-40)
[2022-02-27] MEDS ORDERED: diphenhydrAMINE 25 MG TAB (BENADRYL) PO PRN (17:30)
[2022-02-27] MEDS ORDERED: VANCOMYCIN INJECTION 0.1 MG in NS (IVPB) 250 ML IV SCH (17:30)
[2022-02-27] MEDS ORDERED: MELATONIN 3 MG TABLET PO PRN (17:30)
[2022-02-27] MEDS ORDERED: ANTACID SUSP 30 ML UDC (MYLANTA) PO PRN (17:30)
[2022-02-27] MEDS ORDERED: diphenhydrAMINE 50 MG/ML INJ (BENADRYL) IVP PRN (17:30)
[2022-02-27] MEDS ORDERED: ONDANSETRON 4 MG (ZOFRAN) ORAL DISSOLVE TAB PO PRN (17:30)
[2022-02-27] MEDS ORDERED: polyethylene glycoL POWDER 17 GM (MIRALAX) PACK PO PRN (17:30)
[2022-02-27] MEDS ORDERED: BISACODYL 10 MG SUPP (DULCOLAX) PR PRN (17:30)
[2022-02-27] MEDS ORDERED: ENOXAPARIN 40 MG/0.4 ML (LOVENOX) SYR SC SCH (17:30)
[2022-02-27] MEDS ORDERED: ACETAMINOPHEN 325 MG TABLET PO PRN (17:30)
[2022-02-27] MEDS ORDERED: ONDANSETRON 4 MG/2 ML (SDV) Z0FRAN IV PRN (17:30)
[2022-02-27 17:49] VITALS: BP 127/73
[2022-02-27] MEDS ORDERED: VANCOMYCIN 1 GM/NS 250 ML IVPB IV NR ×2 (18:00)
[2022-02-27] MEDS: cefTRIAXone 2,000 MG in NS (IVPB) 50 ML IV SCH (18:53)
[2022-02-27 19:37] VITALS: BP 115/62
[2022-02-27] MEDS: DOCUSATE SODIUM 100 MG (COLACE) CAP PO SCH (20:00)
[2022-02-27] MEDS ORDERED: HYDROcodone/APAP 7.5 MG/325 MG (LORTAB, LORCET PLUS) TABLET PO PRN (20:00)
[2022-02-27] MEDS ORDERED: morphine INJ 10 MG/ML 1ML (SYR OR VIAL) IVP PRN (20:00)
[2022-02-27] MEDS ORDERED: morphine INJ 10 MG/ML 1ML (SYR OR VIAL) ONE (20:12)
[2022-02-28 00:45] VITALS: BP 119/67
[2022-02-28] MEDS ORDERED: VANCOMYCIN 1250 MG/NS 250 ML IVPB IV SCH ×2 (02:00)
[2022-02-28 03:38] VITALS: BP 110/68
[2022-02-28] MEDS: cefTRIAXone 2,000 MG in NS (IVPB) 50 ML IV SCH (06:45)
[2022-02-28] MEDS: morphine INJ 4 MG/ML 1 ML (VIAL/SYRINGE) IVP PRN ×2 (06:53→10:06)
[2022-02-28 07:41] VITALS: BP 120/73
[2022-02-28 08:08] LABS: HEMATOCRIT 43 % (40-54); HEMOGLOBIN 14.6 g/dL (13.3-17.7); MEAN CORPUSCULAR HEMOGLOBIN 30 pg (25-34); MEAN CORPUSCULAR HGB CONC 34 g/dL (32-36); MEAN CORPUSCULAR VOLUME 89 fL (80-99); MEAN PLATELET VOLUME 11.4 fL (9.0-12.2); PLATELET COUNT 172 10^3/uL (130-400)
[2022-02-28] MEDS: DOCUSATE SODIUM 100 MG (COLACE) CAP PO SCH (08:54)
[2022-02-28 11:06] VITALS: BP 124/78
[2022-02-28] MEDS ORDERED: SUCRALFATE 1 GM (CARAFATE) TAB PO ONE (11:15)
[2022-02-28] MEDS ORDERED: FAMOTIDINE 20 MG (PEPCID) TABLET PO ONE (11:15)
[2022-02-28 16:05] LABS: APPEARANCE,CSF CLEAR; COLOR,CSF COLORLESS; CSF TUBE NUMBER 1
--- NOTE | 2022-02-28 17:55 | Discharge Summary ---
Discharge Summary Hospital Course Problems/Dx: (1) Meningitis Status: Acute Hospital Course Date of Admission: Feb 27, 2022 at 17:32 Admission Diagnosis : Meningitis Family Physician/Provider: Chloe Bolden MD Date of Discharge: 02/28/22 Discharge Diagnosis: Likely aseptic meningitis Hospital Course: Milton Osborne Jr is a 36 year old male who presented with neck stiffness and was admitted with meningitis. He also had photophobia, headache, and positive Kernig and Brudzinski signs. He was initially started on IV antibiotics but these were quickly discontinued. He was not having fevers. He recently recovered from COVID-19. He underwent an LP which showed no elevated WBC or bacteria. The CSF culture was negative at the time of discharge. His symptoms were improving. West Nile antibodies were pending at the time of discharge. He was suffering from either viral or aseptic meningitis. He was discharged home in stable condition. Labs and Pending Lab Test: Laboratory Tests 02/28/22 07:51: White Blood Count 10.0, Red Blood Count 4.87, Hemoglobin 14.6, Hematocrit 43, Mean Corpuscular Volume 89, Mean Corpuscular Hemoglobin 30, Mean Corpuscular Hemoglobin Concent 34, Red Cell Distribution Width 12.1, Platelet Count 172, Mean Platelet Volume 11.4 Microbiology 02/27/22 Gram Stain - Final, Resulted 02/27/22 CSF Culture - Preliminary, Resulted No growth Home Meds Active Reported Naproxen 500 Mg Tablet.dr 500 Mg PO BID Pantoprazole Sodium 40 Mg Tablet.dr 40 Mg PO DAILY Sucralfate 1 Gm Tablet 1 Gm PO ACHS Assessment/Pt Instructions See instructions Discharge Planning: <30 minutes discharge planning Discharge Instructions Discharge Diet: No Restrictions Activity as Tolerated: Yes Discharge Physical Examination Vital Signs Vital Signs Date Time Temp Pulse Resp B/P (MAP) Pulse Ox O2 Delivery O2 Flow Rate FiO2 02/28/22 12:24 02/28/22 11:06 36.5 85 18 95 Room Air General Appearance: No Apparent Distress, WD/WN HEENT: PERRL/EOMI, Pharynx Normal Respiratory: Lungs Clear, No Respiratory Distress Cardiovascular: Regular Rate, Rhythm, No Murmur Gastrointestinal: Normal Bowel Sounds, Soft Extremity: Normal Inspection, No Pedal Edema Skin: Normal Color, Warm/Dry Neurologic/Psychiatric: Alert, Normal Mood/Affect Allergies: Coded Allergies: No Known Drug Allergies (Unverified , 05/13/19) Discharge Summary Date of Admission Feb 27, 2022 at 17:32 Date of Discharge Feb 28, 2022 at 11:11 Discharge Date: Feb 28, 2022 Discharge Time: 11:11 Admission Diagnosis Meningitis Discharge Diagnosis (1) Meningitis Status: Acute BRENDA PARK MD Feb 28, 2022 17:54
[2022-03-01] MEDS ORDERED: TROUGH ORDER-PHARMACY XX NR (01:00)
== END 2022-02-28 11:11 | disposition home or self-care (01) ==
LOC: EDUNIT# 13:21 → ER FS 13:23 → 4TH 17:09 → UNDOADMOB 17:09 → 4TH 17:32 → UNDODISOB 02-28 13:01
PROVIDERS: ADMIT Internal Medicine; ATTEND Internal Medicine
DX: G03.9 Meningitis, unspecified (principal)
CPT/HCPCS: 36415; 62270; 70450; 71045; 80053; 82945; 83605; 84157; 85025; 85027; 85610; 85730; 86788; 86789; 87040; 87070; 87205; 89051; 96366; 96372; 96376; G0378